=== PATIENT | female | born 1970 | race Caucasian/White ===

== ENCOUNTER → 2018-05-09 | Outpatient (CLI) | payer OTHER ==
[2018-05-09 17:00] LABS: ANION GAP 10 MEQ/L (8-16); CARBON DIOXIDE LEVEL 27 MEQ/L (21-32); CHLORIDE LEVEL 103 MEQ/L (98-107); POTASSIUM SERUM 4.2 MEQ/L (3.5-5.1); SODIUM LEVEL 140 MEQ/L (136-145)
== END ==
LOC: M WUC 12:25
DX: L70.0 Acne vulgaris (principal)
CPT/HCPCS: 80051

== ENCOUNTER 2019-02-03 07:18 | Day surgery (SDC) | payer OTHER ==
[~2019-02-03] VITALS: Ht 167.6 cm; Wt 84.8 kg
[~2019-02-03 07:18] MED LIST: ACETAMINOPHEN 1000MG 100ML IV BTL (OFIRMEV) (J0131 PER 10MG) As Ordered ONE; AUGM875T28 PO; BUPIVACAINE/EPIN 0.25% 30 ML VIAL As Ordered ONE; GOOD200C PO; KETOROLAC 60 MG/2 ML VIAL (J1885) As Ordered ONE; LIDOCAINE 2% INJ 100 MG/5 ML SDV (FOR ANES.) As Ordered ONE; LR 1,000 ML IV ONE; MIDAZOLAM INJ 2 MG/2 ML VIAL (J2250) As Ordered ONE; ONDA4TAB6 PO; ONDANSETRON 4MG/2ML VIAL (J2405) As Ordered ONE; PROPOFOL 200 MG/20 ML VIAL As Ordered ONE; ROCURONIUM BROMIDE 50 MG/5 ML VIAL As Ordered ONE; SPIR100T3 PO; dexameTHASONE 4 MG/ML 1ML VIAL (J1100) As Ordered ONE; fentaNYL 100 MCG/2 ML INJECTION (J3010) As Ordered ONE
[2019-02-03 07:49] LABS: HEMATOCRIT 37.3 % (36.0-47.0); HEMOGLOBIN 11.5 g/dl (12.0-15.5); MEAN CORPUSCULAR HEMOGLOBIN 25.6 pg (27.0-33.0); MEAN CORPUSCULAR HGB CONC 30.8 g/dl (32.0-36.5); MEAN CORPUSCULAR VOLUME 82.9 fl (80.0-96.0); PLATELET COUNT, AUTOMATED 373 10^3/uL (150-450); WHITE BLOOD COUNT 7.8 10^3/uL (4.0-10.0)
[2019-02-03 07:56] LABS: URINE PREG TEST NEGATIVE (NEGATIVE)
[2019-02-03 08:20] LABS: BLOOD UREA NITROGEN 15 MG/DL (7-18); CALCIUM LEVEL 8.6 MG/DL (8.5-10.1); CARBON DIOXIDE LEVEL 29 MEQ/L (21-32); CHLORIDE LEVEL 108 MEQ/L (98-107); CREATININE FOR GFR 0.83 MG/DL (0.55-1.30); GLOMERULAR FILTRATION RATE > 60.0 (>58); GLUCOSE, FASTING 93 MG/DL (70-100); POTASSIUM SERUM 4.1 MEQ/L (3.5-5.1); SODIUM LEVEL 141 MEQ/L (136-145)
[2019-02-03] MEDS ORDERED: fentaNYL 100 MCG/2 ML INJECTION (J3010) As Ordered ONE (08:31)
[2019-02-03] MEDS ORDERED: SUGAMMADEX SODIUM 500 MG/5 ML VIAL (BRIDION) As Ordered ONE (08:44)
[2019-02-03] MEDS ORDERED: oxyCODONE 5MG TAB As Ordered ONE (09:35)
[2019-02-03] MEDS ORDERED: NORCO, ANEXSIA 5/325MG TABLET (HYDROcodone/ACETAMINOPHEN) PO PRN (09:45)
[2019-02-03] MEDS ORDERED: ONDANSETRON 4MG/2ML VIAL (J2405) IV PRN (10:00)
[2019-02-03] MEDS ORDERED: fentaNYL 100 MCG/2 ML INJECTION (J3010) IV PRN (10:00)
[2019-02-03] MEDS ORDERED: oxyCODONE 5MG TAB PO PRN (10:00)
[2019-02-03] MEDS ORDERED: LR 1,000 ML IV SCH (10:00)
[2019-02-03] MEDS ORDERED: PROMETHAZINE INJ 25 MG/ML VIAL (J2550) IV PRN (10:00)
--- NOTE | 2019-02-03 10:33 | RO ---
DATE OF PROCEDURE: 02/03/2019 PREOPERATIVE DIAGNOSIS: Symptomatic cholelithiasis. POSTOPERATIVE DIAGNOSIS: Symptomatic cholelithiasis. PROCEDURE: Laparoscopic cholecystectomy. SURGEON: Dr. Tristan. PROGRAM SUPPORT SPECIALIST: None. ANESTHESIA: General. ESTIMATED BLOOD LOSS: 5 COMPLICATIONS: None. INDICATION FOR PROCEDURE: The patient 48-year-old female who presents the right upper quadrant pain found to have symptomatic cholelithiasis. Recommendation was seen to proceed with laparoscopic possible open cholecystectomy. Risks and benefits of the procedure but not limited to but including bleeding, infection, hernia formation, damage to surrounding structures, need for further surgery ws discussed in detail with the patient and informed consent was obtained and procedure was planned. PROCEDURE: The patient brought back to operating room three after sufficient sedation and was sterilely prepped and draped. Next time-out was done to confirm proper patient proper procedure. Following that a stab incision made in left lower quadrant Veress needle inserted the abdomen was insufflated to 50 mmHg. Next the 5 mm supraumbilical midline incision was made and a 5 mm Optiview port was used to gain access to the abdomen. Once abdomen was entered, Veress needle site was examined. No signs of any injury. Veress needle was then removed 11 mm port placed subxiphoid and two 5 mm ports in the right upper quadrant. Fundus of gallbladder was elevated up towards the right shoulder. Cystic duct and cystic artery were dissected free using combination of blunt sharp dissection, once they are both identified they are both doubly clipped and cut gallbladder was then removed from gallbladder fossa using electrocautery. Once the gallbladder was removed intact it was brought out through the subxiphoid port site in a 10 mm EndoCatch bag. Abdomen was examined to confirm hemostasis and was then desufflated. Skin incisions closed 4-0 Vicryl subcuticular sutures. The abdomen was cleaned and dried. Steri-Strips 4x4 and tape were applied thus ending procedure.
[2019-02-03 11:09] VITALS: BP 120/70
[2019-02-03] MEDS ORDERED: HYDR-3713 (23:37)
[2019-02-03] MEDS ORDERED: IBUP-1022 PO (23:37)
[2019-02-04] MEDS ORDERED: HYDR-3713 PO (05:54)
[2019-02-04] MEDS ORDERED: SPIR100T3 PO (05:54)
[2019-02-04] MEDS ORDERED: IBUP1TAB7 PO (05:54)
== END 2019-02-03 11:11 | disposition home or self-care (01) ==
LOC: M SDC 07:18 → MERGE 09:00 → M SDC 11:11
PROVIDERS: ATTEND Surgery
DX: K80.10 Calculus of gallbladder with chronic cholecystitis without obstruction (principal); L70.8 Other acne; T88.59XD Other complications of anesthesia, subsequent encounter; Z98.84 Bariatric surgery status; Z72.0 Tobacco use

== ENCOUNTER 2019-02-03 23:27 | Emergency (ER) | payer OTHER ==
[~2019-02-03] VITALS: Ht 167.6 cm; Wt 84.1 kg
[~2019-02-03 23:27] MED LIST changes: -ACETAMINOPHEN 1000MG 100ML IV BTL (OFIRMEV) (J0131 PER 10MG) As Ordered ONE; -BUPIVACAINE/EPIN 0.25% 30 ML VIAL As Ordered ONE; -KETOROLAC 60 MG/2 ML VIAL (J1885) As Ordered ONE; -LIDOCAINE 2% INJ 100 MG/5 ML SDV (FOR ANES.) As Ordered ONE; -LR 1,000 ML IV ONE; -MIDAZOLAM INJ 2 MG/2 ML VIAL (J2250) As Ordered ONE; -ONDANSETRON 4MG/2ML VIAL (J2405) As Ordered ONE; -PROPOFOL 200 MG/20 ML VIAL As Ordered ONE; -ROCURONIUM BROMIDE 50 MG/5 ML VIAL As Ordered ONE; -dexameTHASONE 4 MG/ML 1ML VIAL (J1100) As Ordered ONE; -fentaNYL 100 MCG/2 ML INJECTION (J3010) As Ordered ONE
[2019-02-03] MEDS ORDERED: IBUP-1022 PO (23:37)
[2019-02-03] MEDS ORDERED: HYDR-3713 (23:37)
[2019-02-04] MEDS ORDERED: MORPHINE 10 MG/ML 1ML VIAL (J2270) IV ONE
[2019-02-04] MEDS ORDERED: METOCLOPRAMIDE INJ 10MG/2ML VIAL (J2765) IV ONE
[2019-02-04] MEDS ORDERED: ISOVUE-370 76% 100ML VIAL (Q9967) As Ordered ONE (00:03)
[2019-02-04 00:09] LABS: INR 0.95; PROTHROMBIN TIME 12.8 SECONDS (12.1-14.4)
[2019-02-04 00:10] LABS: BASO % 0.2 % (0.0-1.0); EOS % 0.1 % (0.0-3.0); HEMATOCRIT 35.8 % (36.0-47.0); HEMOGLOBIN 11.3 g/dl (12.0-15.5); LYMPH # 3.3 10^3/uL (1.5-4.5); LYMPH % 18.7 % (24.0-44.0); MEAN CORPUSCULAR HEMOGLOBIN 25.5 pg (27.0-33.0); MEAN CORPUSCULAR HGB CONC 31.6 g/dl (32.0-36.5); MEAN CORPUSCULAR VOLUME 80.8 fl (80.0-96.0); MONO # 1.3 10^3/uL (0.0-0.8); MONO % 7.5 % (0.0-5.0); NEUTROPHILS # 12.8 10^3/uL (1.8-7.7); NEUTROPHILS % 72.8 % (36.0-66.0); PARTIAL THROMBOPLASTIN TIME 23.1 SECONDS (25.4-37.6); PLATELET COUNT, AUTOMATED 456 10^3/uL (150-450); RED BLOOD COUNT 4.43 10^6/uL (4.00-5.40); WHITE BLOOD COUNT 17.6 10^3/uL (4.0-10.0)
[2019-02-04 00:19] LABS: ALBUMIN 3.9 GM/DL (3.2-5.2); ALT/SGPT 77 U/L (12-78); BILIRUBIN,DIRECT 0.1 MG/DL (0.0-0.2); BILIRUBIN,TOTAL 0.6 MG/DL (0.2-1.0); BLOOD UREA NITROGEN 17 MG/DL (7-18); CALCIUM LEVEL 9.2 MG/DL (8.5-10.1); CARBON DIOXIDE LEVEL 22 MEQ/L (21-32); CHLORIDE LEVEL 102 MEQ/L (98-107); CREATININE FOR GFR 0.97 MG/DL (0.55-1.30); GLOMERULAR FILTRATION RATE > 60.0 (>58); GLUCOSE, FASTING 158 MG/DL (70-100); LIPASE 95 U/L (73-393); POTASSIUM SERUM 4.4 MEQ/L (3.5-5.1); SODIUM LEVEL 136 MEQ/L (136-145); TOTAL PROTEIN 7.4 GM/DL (6.4-8.2)
[2019-02-04] MEDS ORDERED: KETOROLAC 30 MG/ML VIAL (J1885) IV ONE (00:30)
[2019-02-04] MEDS ORDERED: HYDROMORPHONE HCL 0.5 MG/ 0.5 ML SYRINGE (J1170 PER 1) IV ONE ×2 (01:45→02:45)
--- NOTE | 2019-02-04 01:45 | REPVR ---
EXAM: CT Abdomen and Pelvis With Contrast EXAM DATE/TIME: 02/03/2019 11:58 PM CLINICAL HISTORY: 49 years old, female; Abdominal pain; Generalized; Prior surgery; Surgery date: Post-operative (0-2 days); Surgery type: Lap sujit 02-03-19; Additional info: Post op pain TECHNIQUE: Imaging protocol: Axial computed tomography images of the abdomen and pelvis with intravenous contrast. Coronal and sagittal reformatted images were created and reviewed. Radiation optimization: All CT scans at this facility use at least one of these dose optimization techniques: automated exposure control; mA and/or kV adjustment per patient size (includes targeted exams where dose is matched to clinical indication); or iterative reconstruction. Contrast material: ISO; Contrast volume: 100 ml; Contrast route: AC; COMPARISON: Abdomen, limited US 12/25/2018 10:17 PM FINDINGS: LUNG BASES: No infiltrate or effusion. VASCULAR: Major vasculature is within normal limits. PERITONEAL : Trace amount of free intraperitoneal air noted anterior to the liver. Tiny bubbles of gas are also seen within the anterior abdominal wall. These findings are consistent with recent postoperative change as indicated in the clinical history. Trace amount of fluid is noted within the gallbladder fossa. Small amount of fluid is noted along the right paracolic gutter and within the pelvis. These could be recent postoperative changes. If developing infection or small bile leak is suspected, consider additional evaluation. GI: There is a 3 cm gas containing hiatal hernia. Gastric postoperative changes are noted, consistent with bypass. The bypassed segment of stomach is slightly distended with some fluid. No perigastric inflammatory stranding is seen. The distal esophagus and stomach are not sufficiently distended for complete diagnostic evaluation by this exam. Postoperative changes of small bowel loops noted in the left midabdomen. No focal mesenteric inflammatory stranding. Small nonspecific mesenteric lymph nodes are seen. Scattered fecal material and gas within portions of the colon and rectum. No pericolonic inflammatory stranding. No evidence of acute diverticulitis. The ascending colon appears to be redundant and folded upon itself. The cecum has a mobile position extending into the upper anterior central abdomen, slightly crossing midline. The cecum is focally distended with fecal material and gas up to 8.2 cm in diameter. No cecal wall thickening or pneumatosis seen. The terminal ileum just proximal to the cecum is slightly distended with fecal material up to 3.3 cm in diameter. The significance of these findings is uncertain. No rotation of mesentery is seen to suggest a volvulus. Internal hernia or adhesion may be a possibility. Differential could include ileus. If a focal obstruction is suspected, Consideration could be given to small bowel follow-through, with delayed imaging into the right colon or barium enema with reflux into the distal ileum. The appendix is not identified. No secondary inflammatory changes associated with the cecum. HEPATOBILIARY, PANCREAS, SPLEEN: Sagittal hepatic length is 18.8 cm. Attenuation of the liver suggestive of fatty infiltration. The gallbladder has been removed. Trace amount of fluid noted within the gallbladder fossa as discussed above. There is mild biliary dilation with the common bile duct up to 11 mm in diameter. This could be post cholecystectomy related. No calcific choledocholithiasis is seen. No pancreatic inflammation. Spleen not enlarged. ADRENALS, KIDNEYS, BLADDER, RETROPERITONEAL: Adrenals within normal limits. No hydronephrosis. Symmetric renal enhancement. Nonobstructive 4 mm left renal calculus. No perivesical stranding. No bladder wall thickening. PELVIC: No dominant cystic pelvic mass seen. Anteverted uterus. Gas within the vagina may be iatrogenic. MUSCULOSKELETAL: Small non-inflamed fat containing umbilical hernia. Nonspecific skin thickening at the umbilicus. Mild degenerative changes of the spine and within the pelvis. IMPRESSION: Findings consistent with recent postoperative change, including tiny bubbles of free intraperitoneal air, and gas within the anterior abdominal wall. Small amount of scattered free fluid could be related to recent postop change, differential as discussed above. Focal distention of the cecum with fecal material and gas up to 8.2 cm in diameter, differential and recommendations as discussed above. Other gastrointestinal findings discussed above. Other incidental and non-emergent findings discussed above. Electronically signed by: Adonis Tom On 02/04/2019 01:45:16 AM
[2019-02-04] MEDS ORDERED: NS 1,000 ML IV ONE ×2 (02:45)
[2019-02-04] MEDS ORDERED: NACL IV ONE (05:45)
[2019-02-04] MEDS ORDERED: DILUENT IV ONE (05:45)
[2019-02-04] MEDS ORDERED: KETAMINE IV ONE (05:45)
[2019-02-04] MEDS ORDERED: IBUP1TAB7 PO (05:54)
[2019-02-04] MEDS ORDERED: SPIR100T3 PO (05:54)
[2019-02-04] MEDS ORDERED: HYDR-3713 PO (05:54)
[2019-02-04 07:18] VITALS: BP 117/53
--- NOTE | 2019-02-04 07:24 | ECGEPIP ---
Stationary ECG Study [facility] - ED Test Date: 2019-02-03 Pat Name: MIN DACOSTA Department: Room: - Gender: F Pear Picker: : [id number] Requested By: MARGA HAIR Order Number: [id number] Reading MD: Jeanna Paz Measurements Intervals [place] Rate: 67 P: 63 AR: 149 QRS: 63 QRSD: 89 T: 64 QT: 394 QTc: 417 Interpretive Statements SINUS RHYTHM NO PRIOR FOR COMPARISON Electronically Signed On 02-04-2019 7:24:13 EDT by Jeanna Paz
--- NOTE | 2019-02-04 21:03 | ED PDOC ---
Post-Departure Follow-Up ct abd/p faxed to [facility] and [facility] for fu Saeid Marina MD February 04, 2019 21:03
== END 2019-02-04 07:59 | disposition home or self-care (01) ==
LOC: M ED 23:27
DX: R52 Pain, unspecified (principal); K66.8 Other specified disorders of peritoneum; Z90.49 Acquired absence of other specified parts of digestive tract; Z98.890 Other specified postprocedural states; Z98.84 Bariatric surgery status
CPT/HCPCS: 74177; 80048; 80076; 83690; 85025; 85610; 85730; 93005; 96361; 96365; 96375; 96376; 99285; J1170; J1885; J2270; J2765; Q9967

== ENCOUNTER → 2020-07-09 | Outpatient (CLI) | payer OTHER ==
[~2020-07-09] MED LIST changes: +HYDR-3713; +HYDR-3713 PO; +IBUP-1022 PO; +IBUP1TAB7 PO
[2020-07-09 17:07] LABS: POTASSIUM SERUM 4.2 MEQ/L (3.5-5.1)
== END ==
LOC: M WUC 10:20
PROVIDERS: ATTEND Nurse Practitioner Family
DX: L70.0 Acne vulgaris (principal)

== ENCOUNTER 2020-11-28 04:54 | Emergency (ER) | payer OTHER ==
[~2020-11-28] VITALS: Ht 167.6 cm; Wt 81.9 kg
[2020-11-28] MEDS ORDERED: AZO1CAP PO (05:02)
[2020-11-28 05:47] LABS: BASO % 0.2 % (0.0-1.0); HEMATOCRIT 31.2 % (36.0-47.0); HEMOGLOBIN 9.8 g/dl (12.0-15.5); LYMPH # 0.3 10^3/uL (1.5-5.0); LYMPH % 2.8 % (24.0-44.0); MEAN CORPUSCULAR HEMOGLOBIN 24.6 pg (27.0-33.0); MEAN CORPUSCULAR HGB CONC 31.4 g/dl (32.0-36.5); MEAN CORPUSCULAR VOLUME 78.2 fl (80.0-96.0); MONO # 0.3 10^3/uL (0.0-0.8); NEUTROPHILS # 10.2 10^3/uL (1.5-8.5); NEUTROPHILS % 93.3 % (36.0-66.0); PLATELET COUNT, AUTOMATED 310 10^3/uL (150-450); RED BLOOD COUNT 3.99 10^6/uL (4.00-5.40)
[2020-11-28] MEDS ORDERED: KETOROLAC 30 MG/ML 1ML VIAL IV ONE (06:10)
[2020-11-28 06:52] LABS: ALBUMIN 3.9 GM/DL (3.2-5.2); ALT/SGPT 18 U/L (12-78); BILIRUBIN,DIRECT 0.2 MG/DL (0.0-0.2); BILIRUBIN,TOTAL 0.4 MG/DL (0.2-1.0); BLOOD UREA NITROGEN 8 MG/DL (7-18); CALCIUM LEVEL 8.3 MG/DL (8.5-10.1); CARBON DIOXIDE LEVEL 24 MEQ/L (21-32); CHLORIDE LEVEL 105 MEQ/L (98-107); CREATININE FOR GFR 0.94 MG/DL (0.55-1.30); GLOMERULAR FILTRATION RATE > 60.0 (>58); GLUCOSE, FASTING 113 MG/DL (70-100); LIPASE 71 U/L (73-393); POTASSIUM SERUM 3.4 MEQ/L (3.5-5.1); SODIUM LEVEL 138 MEQ/L (136-145); TOTAL PROTEIN 6.9 GM/DL (6.4-8.2)
[2020-11-28] MEDS ORDERED: NS 1,000 ML IV ONE ×2 (07:00→07:50)
--- NOTE | 2020-11-28 07:57 | REPVR ---
PROCEDURE INFORMATION: Exam: CT Abdomen And Pelvis Without Contrast Exam date and time: 11/28/2020 7:20 AM Age: 50 years old Clinical indication: Abdominal pain; Flank; Other: Simon; Additional info: Simon flank pain concern for stones l>r TECHNIQUE: Imaging protocol: Computed tomography of the abdomen and pelvis without contrast. Radiation optimization: All CT scans at this facility use at least one of these dose optimization techniques: automated exposure control; mA and/or kV adjustment per patient size (includes targeted exams where dose is matched to clinical indication); or iterative reconstruction. COMPARISON: CT ABD/PEL W/IV CONTRAST ONLY 02/04/2019 12:22 AM FINDINGS: Lung bases are clear. No pleural or pericardial effusion. Within the limits of an unenhanced examination, the liver, spleen, pancreas and adrenals are grossly normal. Gallbladder is surgically absent. Kidneys are grossly normal in size, contour and axis. No focal renal abnormalities. There is mild, asymmetric left perinephric stranding. There is mild, asymmetric hydronephrosis of the left intrarenal collecting system and left ureter. Left hydroureter extends to the pelvis where there is at least a partially obstructing urolith in the distal left ureter just above the ureterovesical junction measuring up to 4 mm in diameter (image number 134, series 201). There is no evidence of right ureterolithiasis or obstructive uropathy. Abdominal aorta is normal in caliber with no evidence of aneurysmal dilatation. Surgical suture at the gastroesophageal junction. Enteric anastomosis in the left abdomen. Findings are likely consistent with prior bariatric surgery. Small and large bowel loops are grossly normal. Mild left-sided colonic diverticular changes. No evidence of enteric obstruction, appendicitis or diverticulitis. In pelvic organs are grossly normal. No significant free fluid in the abdomen or pelvis. Visualized osseous structures are grossly normal for age. IMPRESSION: Mild asymmetric left perinephric stranding. Mild asymmetric hydronephrosis of the left intra and extrarenal collecting system. Findings are due to at least a partially obstructing urolith in the distal left ureter measuring up to 4 mm. This is less than 1 cm above the ureterovesical junction. No evidence of right obstructive uropathy. No other acute intra-abdominal or pelvic process. No evidence of enteric obstruction. Electronically signed by: Titus Conrad On 11/28/2020 07:57:48 AM
[2020-11-28] MEDS ORDERED: FLOM0.4C39 PO (08:09)
[2020-11-28] MEDS ORDERED: CEPH500C PO (08:09)
[2020-11-28 08:18] VITALS: BP 106/52
== END 2020-11-28 08:35 | disposition home or self-care (01) ==
LOC: M ED 04:54
DX: N30.90 Cystitis, unspecified without hematuria (principal); N20.0 Calculus of kidney; Z98.84 Bariatric surgery status; Z79.899 Other long term (current) drug therapy; F17.200 Nicotine dependence, unspecified, uncomplicated
CPT/HCPCS: 74176; 80047; 80048; 80076; 81001; 83690; 84702; 85025; 87086; 96361; 96374; 99284; J1885

== ENCOUNTER 2020-11-30 07:50 | Inpatient (IN) | payer OTHER ==
[~2020-11-30] VITALS: Ht 167.6 cm; Wt 83.1 kg
[~2020-11-30 07:50] MED LIST changes: +AZO1CAP PO; +CEPH500C PO; +FLOM0.4C39 PO
[2020-11-30] MEDS ORDERED: NS 1,000 ML IV ONE (08:15)
[2020-11-30] MEDS ORDERED: ONDANSETRON 4MG/2ML VIAL IV ONE (08:15)
[2020-11-30] MEDS ORDERED: ACETAMINOPHEN 500 MG TAB PO ONE (08:15)
[2020-11-30] MEDS ORDERED: NS IV ONE (08:30)
[2020-11-30] MEDS ORDERED: LevoFLOXacin IV 750 MG in IV 1 EA IV ONE (08:30)
[2020-11-30 08:54] LABS: HCG, SERUM QUALITATIVE NEGATIVE (NEGATIVE)
[2020-11-30] MEDS ORDERED: KETOROLAC 30 MG/ML 1ML VIAL IV ONE (08:55)
[2020-11-30 08:57] LABS: BASO % 0.3 % (0.0-1.0); EOS % 0.3 % (0.0-3.0); HEMATOCRIT 31.9 % (36.0-47.0); HEMOGLOBIN 9.9 g/dl (12.0-15.5); LYMPH # 0.5 10^3/uL (1.5-5.0); LYMPH % 4.4 % (24.0-44.0); MEAN CORPUSCULAR HEMOGLOBIN 24.6 pg (27.0-33.0); MEAN CORPUSCULAR VOLUME 79.2 fl (80.0-96.0); MONO # 0.5 10^3/uL (0.0-0.8); MONO % 4.5 % (2.0-8.0); NEUTROPHILS # 10.7 10^3/uL (1.5-8.5); NEUTROPHILS % 89.6 % (36.0-66.0); PLATELET COUNT, AUTOMATED 310 10^3/uL (150-450); RED BLOOD COUNT 4.03 10^6/uL (4.00-5.40)
[2020-11-30 09:07] LABS: ALBUMIN 3.5 GM/DL (3.2-5.2); BILIRUBIN,DIRECT 0.2 MG/DL (0.0-0.2); BILIRUBIN,TOTAL 0.6 MG/DL (0.2-1.0); TOTAL PROTEIN 7.8 GM/DL (6.4-8.2)
--- NOTE | 2020-11-30 09:26 | REP ---
INDICATION: L flank pain, h/o kidney stones, r/o stone vs pyelo COMPARISON: None TECHNIQUE: Axial noncontrast images from the lung bases to the pubic symphysis with coronal and sagittal reformations. This CT examination was performed using the following dose reduction techniques: Automated exposure control, adjustment of mA and/or kv according to the patient's size, and use of iterative reconstruction technique. FINDINGS: Moderate to significant acute left-sided obstructive uropathy including edematous enlargement to the kidney, hydroureteronephrosis, and diffuse inflammatory stranding through the left perinephric space extending to the pelvis. Findings are secondary to a 4.5 mm obstructing calculus approaching the left ureterovesical junction relatively unchanged in appearance and position as compared to prior examination. Right kidney/ureter and bladder are normal. Liver, spleen, pancreas, and bilateral adrenal glands are normal. Prior cholecystectomy noted. The enteric system is without obstruction or acute inflammatory process. Pelvis demonstrates normal age-appropriate uterus/adnexa and relatively normal bladder as described above. No significant ascites. No free air. Abdominal aorta without aneurysm. Musculoskeletal structures are intact. IMPRESSION: Moderate to significant acute left-sided obstructive uropathy with a 4.5 mm obstructing calculus in the distal left ureter approaching the ureterovesical junction and essentially unchanged compared to 11/28/2020. <Electronically signed by Drew Clark > 11/30/20 [id number]
[2020-11-30] MEDS ORDERED: TAMS1CAP17 PO (09:44)
[2020-11-30] MEDS ORDERED: CEPH500C PO (09:44)
[2020-11-30] MEDS ORDERED: ACET-907 PO (09:44)
[2020-11-30 10:44] LABS: RSV AMPLIFICATION NEGATIVE (NEGATIVE)
[2020-11-30] MEDS ORDERED: POTASSIUM CHLORIDE 10 MEQ SR TABLET PO ONE (10:55)
[2020-11-30 11:21] LABS: MAGNESIUM LEVEL 1.9 MG/DL (1.8-2.4)
[2020-11-30] MEDS ORDERED: ACETAMINOPHEN TAB 650MG DOSE (2X325MG) PO PRN (12:00)
[2020-11-30 12:05] VITALS: BP 127/68
[2020-11-30] MEDS: NS 1,000 ML IV SCH (13:05)
[2020-11-30 14:00] VITALS: BP 118/67
--- NOTE | 2020-11-30 14:43 | HPEPDOC ---
General Date of Admission Nov 30, 2020 at 10:51 Date of Service: Nov 30, 2020 Chief Complaint The patient is a 50-year-old female admitted with a reason for visit of Left Ureteral Calculus and Sepsis Source: Patient History of Present Illness Mrs. Campuzano is a 50 year old female with history of nephrolithiasis who presents with dysuria and flank pain for the past 4 days. Dysuria initially started on 11/27/2020 at 9PM. About an hour and a half later, it turned into bilateral flank pain. It was a sharp pain, and it was so severe she was afraid to move. She was also nauseated and vomiting once on Sunday. She was also having fevers. She came into the ED and was given ketorolac which helped with the pain. UA at that time was positive for nitrates. She was sent home with Cephalexin. Afterwards, she continued to have recurring flank pain on the left side and a temperature of 102.7. She returned back tot he ED on 11/30/2020 since she was not getting better. When she came into the ED, she had a fever of 102.9, HR of 110, and leukocytosis of 12. CT of the abd/pelvis demonstrates acute significant left sided obstructive uropathy with 4.5mm obstructing calculus in the distal left ureter. On physical exam, she does have left CVA tenderness. ED provider and I reached out to Dr. Farley, who said he could take her to the OR later in the day. Patient will be admitted for sepsis secondary to UTI complicated by obstructive renal stone. Home Medications Scheduled Cephalexin (Cephalexin) 500 Mg Capsule, 500 MG PO TID, (Reported) STARTED 11/28/20 FOR 10 DAYS Spironolactone (Spironolactone) 100 Mg Tablet, 100 MG PO DAILY, (Reported) Tamsulosin Hcl (Tamsulosin HCl) 0.4 Mg Capsule, 0.4 MG PO DAILY, (Reported) Scheduled PRN Acetaminophen (Tylenol) 325 Mg Tablet, 650 MG PO QID PRN for PAIN, (Reported) Cranberry Fruit Extract/Vit C (Azo Cranberry Softgel) 1 Each Capsule, 1 CAP PO BID PRN for UTI SYMPTOMS, (Reported) Allergies Coded Allergies: No Known Allergies (Unverified , 02/03/19) Past Medical History Medical History 1. Nephrolithiasis 2. Acne Surgical History 1. Gastric Bypass 2009 2. Lap cholecystectomy 3. Lasiks Family History Father: Heart disease, bladder cancer Mother: Vertigo Social History * Smoker: former Smoker (Quit 10 years ago), other (Currently using nicotine lozengers) Alcohol: occationally (About 3 to 4 times a week. Last drink on Sunday (about 4 days ago)) Drugs: denies A-FIB/CHADSVASC A-FIB History Current/History of A-Fib/PAF?: No Review of Systems Constitutional: Reports: Fever; Denies: Chills Eyes: Denies: Vision change ENT: Reports: Other Symptoms (Dry mouth); Denies: Sore Throat Skin: Denies: Rash Pulmonary: Denies: Dyspnea, Cough Cardiovascular: Denies: Chest Pain Gastrointestinal: Reports: Nausea, Vomiting (Once on Sunday) Genitourinary: Reports: Dysuria Hematologic: Denies: Bruising Musculoskeletal: Reports: Back Pain Neurological: Denies: Other Symptoms (Denies paresthesias) Psych: Denies: Anxiety, Depression Physical Examination General Exam: Positive: Alert, Cooperative Eye Exam: Positive: EOMI; Negative: Sclera icteric ENT Exam: Positive: Atraumatic Neck Exam: Positive: Supple Chest Exam: Positive: Clear to auscultation; Negative: Rales, Rhonchi, Wheezing Heart Exam: Positive: Tachycardic, Regular Rhythm Abdomen Exam: Positive: Normal bowel sounds, Soft, Tenderness (Left abdomen) Extremity Exam: Negative: Edema Neuro Exam: Positive: Normal Speech, Cranial Nerves 3-12 NL Psych Exam: Positive: Mental status NL, Mood NL Other physical findings Musculoskeletal: Left CVA tenderness, No tenderness on right Vital Signs Vital Signs Date Time Temp Pulse Resp B/P (MAP) Pulse Ox O2 Delivery O2 Flow Rate FiO2 11/30/20 12:05 98.5 92 18 127/68 (87) 97 11/30/20 11:48 Room Air Laboratory Data Labs 24H Laboratory Tests 2 11/30/20 08:11: Immature Granulocyte % (Auto) 0.9, Neutrophils (%) (Auto) 89.6H, Lymphocytes (%) (Auto) 4.4L, Monocytes (%) (Auto) 4.5, Eosinophils (%) (Auto) 0.3, Basophils (%) (Auto) 0.3, Neutrophils # (Auto) 10.7H, Lymphocytes # (Auto) 0.5L, Monocytes # (Auto) 0.5, Eosinophils # (Auto) 0.0, Basophils # (Auto) 0.0, Nucleated Red Blood Cells % (auto) 0.0, Total Bilirubin 0.6, Direct Bilirubin 0.2, Aspartate Amino Transf (AST/SGOT) 12, Alanine Aminotransferase (ALT/SGPT) 15, Alkaline P hosphatase 82, Total Protein 7.8, Albumin 3.5, Albumin/Globulin Ratio 0.8L, Amylase Level 29, Lipase 61L 11/30/20 08:13: Lactic Acid Level 1.4 11/30/20 08:25: Urine Color YELLOW, Urine Appearance CLEAR, Urine pH 6.0, Urine Specific [place] 1.012, Urine Protein 1+H, Urine Glucose (UA) NEGATIVE, Urine Ketones 1+H, Urine Blood 2+H, Urine Nitrite NEGATIVE, Urine Bilirubin NEGATIVE, Urine Urobilinogen 0.2, Urine Leukocyte Esterase NEGATIVE, Urine WBC (Auto) 6H, Urine RBC (Auto) 33H, Urine Hyaline Casts (Auto) 0, Urine Bacteria (Auto) NEGATIVE, Urine Squamous Epithelial Cells 0, Urine Sperm (Auto) , POC Glucose (Misc Panel) 110H, POC Sodium (Misc Panel) 134L, POC Potassium (Misc Panel) 3.3L, POC Chloride (Misc Panel) 101, POC Total CO2 (Misc Panel) 23.0, POC Blood Urea Nitrogen (Misc Panel 7L, POC Ionized Calcium (Misc Panel) 4.5, POC Creatinine (Misc Panel) 0.9, POC Hematocrit (Misc Panel) 33.0L, Magnesium Level 1.9, Human Chorionic Gonadotropin, Qual NEGATIVE 11/30/20 09:50: Coronavirus (COVID-19)(PCR) NEGATIVE, Influenza Type A (RT-PCR) NEGATIVE, Influenza Type B (RT-PCR) NEGATIVE, Respiratory Syncytial Virus (PCR) NEGATIVE CBC/BMP Laboratory Tests 11/30/20 08:11 Microbiology Microbiology 11/30/20 Blood Culture, Received Pending 11/30/20 Blood Culture, Received Pending Assessment/Plan Mrs. Campuzano is a 50 year old female with history of nephrolithiasis who presents with dysuria and flank pain for the past 4 days. UA on 11/28/2020 did demonstrate nitrates, but UA did not demonstrate growth. Due to her recurrent fever, will still treat as complicated UTI. There is an acute significant obstructive uropathy in left kidney 2/2 left nephrolithiasis. Urology consulted, recommendations appreciated. Patient will be kept NPO for procedure later tonight. Plan / VTE VTE Prophylaxis Ordered?: Yes Plan Plan 1. Sepsis secondary to complicated UTI -Meets 3/4 criteria for sepsis (fever, tachycardia, leukocytosis) -Received 30mL/kg of fluid in the ED -Started on Levofloxacin 2. UTI complicated by left obstructive kidney stone -UA on 11/28/2020 demonstrated nitrates, but no growth -Will empirically treat with levothyroxine -Current UA most likely confounded by current antibiotic use 3. Acute significant left sided obstructive uropathy -There is a 4.5mm obstructing calculus in the distal left ureter approaching the ureterovesical junction -Attempted outpatient management, but continued to have fevers and pain -Urology consulted, recommendations appreciated -NPO for procedure after 6PM tonight. -Can resume normal diet after procedure 4. Acne -She was taking spironolactone for acne -Hold spironolactone until after procedure 5. Microcytic anemia -Baseline hgb around 11, but currently around 10 to 9 -Will order iron studies and Hemoccult stool -If Hemoccult stool positive, can consider outpatient GI consultation for colonoscopy 6. DVT ppx -SCD and TEDs as patient going for procedure this afternoon. Can consider chemical ppx after procedure. PHANI WILLOUGHBY DO Nov 30, 2020 14:43
[2020-11-30] MEDS ORDERED: KETOROLAC 30 MG/ML 1ML VIAL IV PRN (15:00)
--- NOTE | 2020-11-30 16:37 | ECGEPIP ---
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
[2020-11-30] MEDS ORDERED: MIDAZOLAM INJ 2MG/2ML VIAL (J2250 PER 1MG) As Ordered ONE (19:48)
[2020-11-30] MEDS ORDERED: fentaNYL 100 MCG/2 ML INJECTION (J3010) As Ordered ONE (19:48)
[2020-11-30] MEDS ORDERED: LIDOCAINE 2% 100MG/5ML SDV (FOR ANES.) As Ordered ONE (19:48)
[2020-11-30] MEDS ORDERED: propofoL 200 MG/20 ML VIAL As Ordered ONE (19:48)
--- NOTE | 2020-11-30 20:03 | SMCUROLCON ---
Urology Consultation General Date of Consultation 11/30/20 Reason For Consultation This patient is seen for Left Ureteral Calculus Sepsis Uti. History of Present Illness This is a 50 y/o F no significant PMH, who presented to the ER this morning w/ worsening L flank pain and fevers. She came to the ER 2-3 days ago w/ severe L flank pain and was found to have an obstructing 4mm L UVJ stone. She was discha rged home on pain medication and antibiotics. She notes that he pain worsened over the last few days and she started having fevers as well. She also had n/v. She denied dysuria. Repeat CT A/P done today was notable for the 4mm L UVJ stone still in place. She was admitted for treatment of the stone and infection. While on the nursing floor, she passed her stone. She notes that her pain at this time is much better. Her nausea has resolved. She notes that her last fever was when she passed her stone. Past Medical History Medical History None Surgical Hstory Laparoscopic Cholecystectomy Gastric Bypass Medications Current Medications Current Medications Medications (Trade) Dose Ordered Sig/Kalen Route PRN Reason Start Time Stop Time Status Last Admin Dose Admin Acetaminophen (Tylenol Tab) 650 mg Q4H PRN PO PAIN OR FEVER 11/30/20 12:00 11/30/20 15:39 Home Med (Med Rec Complete!) ASDIRECTED XX 11/30/20 09:45 11/30/20 09:46 DC Ketorolac Tromethamine (ToRADol) 15 mg Q6HP PRN IV PAIN 11/30/20 15:00 12/05/20 14:59 Levofloxacin 750 mg/IV Miscellaneous Supplies 150 ml @ 100 mls/hr Q24H IV 12/01/20 09:00 Sodium Chloride 1,000 ml @ 80 mls/hr [id number] IV 11/30/20 10:55 11/30/20 13:05 Allergies Allergies: Coded Allergies: No Known Allergies (Unverified , 02/03/19) Review of Systems Constitutional: Reports: Fever Skin: Denies: Rash, Lesions, Breakdown, Nail Changes Pulmonary: Denies: Dyspnea, Cough Gastrointestinal: Reports: Nausea, Vomiting, Abdominal Pain Genitourinary: Reports: Hematuria; Denies: Dysuria, Frequency, Incontinence, Retention, Other Symptoms Musculoskeletal: Reports: Back Pain (left flank) Psych: Reports: Mood Normal; Denies: Anxiety, Depression Physical Examination General Exam: Alert, Cooperative, No Acute Distress Chest Exam: Normal air movement Heart Exam: Rate Normal, Regular Rhythm Abdomen Exam: Soft, Tenderness (mild LLQ tenderness) Skin Exam: Nl turgor and temperature Neuro Exam: Normal Speech Psych Exam: Mental status NL, Mood NL Vital Signs/I&O Vital Signs Date Time Temp Pulse Resp B/P (MAP) Pulse Ox O2 Delivery O2 Flow Rate FiO2 11/30/20 18:41 98.8 11/30/20 14:00 103 18 118/67 (84) 98 11/30/20 11:48 Room Air Laboratory Data 24H Labs Laboratory Tests 2 11/30/20 08:11: Immature Granulocyte % (Auto) 0.9, Neutrophils (%) (Auto) 89.6H, Lymphocytes (%) (Auto) 4.4L, Monocytes (%) (Auto) 4.5, Eosinophils (%) (Auto) 0.3, Basophils (%) (Auto) 0.3, Neutrophils # (Auto) 10.7H, Lymphocytes # (Auto) 0.5L, Monocytes # (Auto) 0.5, Eosinophils # (Auto) 0.0, Basophils # (Auto) 0.0, Nucleated Red Blood Cells % (auto) 0.0, Total Bilirubin 0.6, Direct Bilirubin 0.2, Aspartate Amino Transf (AST/SGOT) 12, Alanine Aminotransferase (ALT/SGPT) 15, Alkaline Phosphatase 82, Total Protein 7.8, Albumin 3.5, Albumin/Globulin Ratio 0.8L, Amylase Level 29, Lipase 61L 11/30/20 08:13: Lactic Acid Level 1.4 11/30/20 08:25: Urine Color YELLOW, Urine Appearance CLEAR, Urine pH 6.0, Urine Specific [place] 1.012, Urine Protein 1+H, Urine Glucose (UA) NEGATIVE, Urine Ketones 1+H, Urine Blood 2+H, Urine Nitrite NEGATIVE, Urine Bilirubin NEGATIVE, Urine Urobilinogen 0.2, Urine Leukocyte Esterase NEGATIVE, Urine WBC (Auto) 6H, Urine RBC (Auto) 33H, Urine Hyaline Casts (Auto) 0, Urine Bacteria (Auto) NEGATIVE, Urine Squamous Epithelial Cells 0, Urine Sperm (Auto) , POC Glucose (Misc Panel) 110H, POC Sodium (Misc Panel) 134L, POC Potassium (Misc Panel) 3.3L, POC Chloride (Misc Panel) 101, POC Total CO2 (Misc Panel) 23.0, POC Blood Urea Nitrogen (Misc Panel 7L, POC Ionized Calcium (Misc Panel) 4.5, POC Creatinine (Misc Panel) 0.9, POC Hematocrit (Misc Panel) 33.0L, Magnesium Level 1.9, Human Chorionic Gonadotropin, Qual NEGATIVE 11/30/20 09:50: Coronavirus (COVID-19)(PCR) NEGATIVE, Influenza Type A (RT-PCR) NEGATIVE, Influenza Type B (RT-PCR) NEGATIVE, Respiratory Syncytial Virus (PCR) NEGATIVE CBC/BMP Laboratory Tests 11/30/20 08:11 Microbiology Microbiology 11/30/20 Blood Culture, Received Pending 11/30/20 Blood Culture, Received Pending Assessment This is a 50 y/o F admitted for worsening L flank pain due to a 4mm L UVJ stone and a possible UTI. The patient has passed her stone and therefore her surgery was cancelled. Plan - surgery cancelled - ok for regular diet - will send her kidney stone for analysis - assuming patient feels better tomorrow and remains afebrile, ok for discharge home from urologic standpoint AUSTIN MOORE MD Nov 30, 2020 20:03
[2020-11-30 22:00] VITALS: BP 100/66
[2020-12-01 06:00] VITALS: BP 101/62
[2020-12-01 06:19] LABS: HEMATOCRIT 25.7 % (36.0-47.0); MEAN CORPUSCULAR HEMOGLOBIN 24.8 pg (27.0-33.0); MEAN CORPUSCULAR HGB CONC 31.1 g/dl (32.0-36.5); MEAN CORPUSCULAR VOLUME 79.6 fl (80.0-96.0); PLATELET COUNT, AUTOMATED 246 10^3/uL (150-450); RED BLOOD COUNT 3.23 10^6/uL (4.00-5.40); WHITE BLOOD COUNT 6.7 10^3/uL (4.0-10.0)
[2020-12-01 07:14] LABS: BLOOD UREA NITROGEN 7 MG/DL (7-18); CALCIUM LEVEL 7.6 MG/DL (8.5-10.1); CARBON DIOXIDE LEVEL 23 MEQ/L (21-32); CHLORIDE LEVEL 111 MEQ/L (98-107); CREATININE FOR GFR 0.54 MG/DL (0.55-1.30); FERRITIN 54 NG/ML (8-252); GLOMERULAR FILTRATION RATE > 60.0 (>58); GLUCOSE, FASTING 83 MG/DL (70-100); IRON (FE) 12 UG/DL (50-170); PERCENT SATURATION 3.8 % (13.2-45.0); POTASSIUM SERUM 3.6 MEQ/L (3.5-5.1); SODIUM LEVEL 141 MEQ/L (136-145); TOTAL IRON BINDING CAPACITY 314 UG/DL (250-450)
[2020-12-01] MEDS ORDERED: LEVO750T13 PO (08:11)
[2020-12-01] MEDS ORDERED: COLA100C5 PO (08:14)
[2020-12-01] MEDS ORDERED: FERR325T16 PO (08:14)
[2020-12-01] MEDS ORDERED: DOCUSATE SODIUM 100MG CAPSULE PO SCH (09:00)
[2020-12-01] MEDS ORDERED: LevoFLOXacin IV 750 MG in IV 1 EA IV SCH (09:00)
[2020-12-01] MEDS ORDERED: FERROUS GLUCONATE 324 MG TAB PO SCH (09:00)
[2020-12-01] MEDS: NS 1,000 ML IV SCH (09:11)
--- NOTE | 2020-12-01 10:27 | IPNPDOC ---
Subjective Review oF Systems Chief Complaint The patient is a 50-year-old female admitted with a reason for visit of Left Ureteral Calculus Sepsis Uti. Events since Last Encounter No acute events o/n. Patient's pain is pretty much gone. Denies n/v. No fevers o/n. Objective Physical Examination General Exam: Alert, Cooperative, No Acute Distress Heart Exam: Positive: Tachycardic, Regular Rhythm ABDOMEN EXAM: Soft; No: Tenderness Skin Exam: Nl turgor and temperature Neuro Exam: Normal Speech Psych Exam: Mental status NL, Mood NL Other physical findings no CVAT Vital Signs/I&O Vital Signs Date Time Temp Pulse Resp B/P (MAP) Pulse Ox O2 Delivery O2 Flow Rate FiO2 12/01/20 06:00 98.9 80 18 101/62 (75) 97 Room Air I&O- Last 24 Hours up to 6 AM 12/01/20 06:00 Intake Total 3770 ml Output Total 2120 ml Balance 1650 ml Laboratory Data Labs 24H Laboratory Tests 2 11/30/20 21:18: 12/01/20 05:27: Bedside Glucose (Misc Panel) 81 12/01/20 05:52: Nucleated Red Blood Cells % (auto) 0.0, Anion Gap 7L, Glomerular Filtration Rate > 60.0, Calcium Level 7.6L, Iron Level 12L, Total Iron Binding Capacity 314, Transferrin % Saturation 3.8L, Ferritin 54, C-Reactive Protein, Quantitative 12.70H CBC/BMP Laboratory Tests 12/01/20 05:52 FSBS Laboratory Tests Test 12/01/20 05:27 Range/Units Bedside Glucose (Misc Panel) 81 70-105 MG/DL Microbiology Microbiology 11/30/20 Blood Culture - Preliminary, Resulted No growth after 24 hours . All specim... 11/30/20 Blood Culture - Preliminary, Resulted No growth after 24 hours . All specim... Assessment/Plan Date Seen The patient was seen on 12/01/20. Patient Summary This is a 50 y/o F admitted yesterday for worsening L flank pain due to a 4mm L UVJ stone and a possible UTI. She has passed her stone and feels much better. Plan/VTE VTE Prophylaxis Ordered?: Yes VTE Exclusion Mechanical Proph: N/A:VTE Prophy Ordered Plan - kidney stone sent for analysis - ok for discharge from urologic standpoint - will arrange f/u in urology office in 2-3 wks to discuss stone analysis and stone prevention AUSTIN MOORE MD Dec 01, 2020 10:26
--- NOTE | 2020-12-01 23:33 | DS.PDOC ---
Discharge Summary General Date of Admission Nov 30, 2020 at 10:51 Date of Discharge Dec 01, 2020 Discharge Summary PROCEDURES PERFORMED DURING STAY: None ADMITTING DIAGNOSES: 1. Sepsis 2/2 complicated UTI 2. UTI complicated by left obstructive kidney stone 3. Acute significant left sided obstructive uropathy 4. Acne 5. Microcytic anemia DISCHARGE DIAGNOSES: 1. Sepsis 2/2 complicated UTI 2. UTI complicated by left obstructive kidney stone 3. Acute significant left sided obstructive uropathy 4. Acne 5. Microcytic anemia COMPLICATIONS/CHIEF COMPLAINT: Left Ureteral Calculus Sepsis Uti. HISTORY OF PRESENT ILLNESS: Mrs. Campuzano is a 50 year old female with history of nephrolithiasis who presents with dysuria and flank pain for the past 4 days. Dysuria initially started on 11/27/2020 at 9PM. About an hour and a half later, it turned into bilateral flank pain. It was a sharp pain, and it was so severe she was afraid to move. She was also nauseated and vomiting once on Sunday. She was also having fevers. She came into the ED and was given ketorolac which helped with the pain. UA at that time was positive for nitrates. She was sent home with Cephalexin. Afterwards, she continued to have recurring flank pain on the left side and a temperature of 102.7. She returned back tot he ED on 11/30/2020 since she was not getting better. When she came into the ED, she had a fever of 102.9, HR of 110, and leukocytosis of 12. CT of the abd/pelvis demonstrates acute significant left sided obstructive uropathy with 4.5mm obstructing calculus in the distal left ureter. On physical exam, she does have left CVA tenderness. ED provider and I reached out to Dr. Farley, who said he could take her to the OR later in the day. Patient will be admitted for sepsis secondary to UTI complicated by obstructive renal stone. HOSPITAL COURSE: Prior to having the urologic procedure, she passed two stones and immediately had relief. Urology evaluated. No procedure needed at this time. Stones were sent for analysis. The following morning, she was feeling well and has been afebrile since then. Flank pain has greatly resolved. Otherwise, she has microcytic anemia with iron deficiency. She has not yet had a colonoscopy, but is approaching the time for colorectal cancer screening. I recommended that she see GI for iron deficiency microscopic anemia. Otherwise, she felt well and felt ready for home. She was discharged home with PO antibiotics, Colace and iron supplements DISCHARGE MEDICATIONS: Please see below. ALLERGIES: Please see below. PHYSICAL EXAMINATION ON DISCHARGE: VITAL SIGNS: Please see below. GENERAL: Comfortable, in no apparent distress HEENT: Head normocephalic, atraumatic NECK: Supple CARDIOVASCULAR EXAMINATION: Regular rate and rhythm RESPIRATORY EXAMINATION: Lungs clear to auscultation bilaterally ABDOMINAL EXAMINATION: Soft, non-tender, normal bowel sounds EXTREMITIES: No pitting edema bilaterally SKIN: Warm and dry NEUROLOGICAL EXAMINATION: CN 3-12 grossly intact PSYCHIATRIC EXAMINATION: Normal mood and affect LABORATORY DATA: Please see below. IMAGING: CT abd/pelvis Moderate to significant acute left-sided obstructive uropathy with a 4.5 mm obstructing calculus in the distal left ureter approaching the ureterovesical junction and essentially unchanged compared to 11/28/2020. PROGNOSIS: Good ACTIVITY: As tolerated. DIET: As tolerated DISCHARGE PLAN: Home DISPOSITION: Home, Self-Care. DISCHARGE INSTRUCTIONS: 1. Follow up with PCP within 1 week. Discuss with your PCP about your anemia 2. I've requested that you see GI for microcytic iron deficiency anemia. She is also nearing her time for colorectal cancer screening ITEMS TO FOLLOWUP ON ON OUTPATIENT: 1. Kidney stone analysis DISCHARGE CONDITION: Stable. Total time spent on discharge planning, discharge summary, and medication reconciliation: 40 minutes Vital Signs/I&Os Vital Signs Date Time Temp Pulse Resp B/P (MAP) Pulse Ox O2 Delivery O2 Flow Rate FiO2 12/01/20 06:00 98.9 80 18 101/62 (75) 97 Room Air I&O- Last 24 Hours up to 6 AM 12/01/20 06:00 Intake Total 3770 ml Output Total 2120 ml Balance 1650 ml Laboratory Data Labs 24H Laboratory Tests 2 12/01/20 05:27: Bedside Glucose (Misc Panel) 81 12/01/20 05:52: Nucleated Red Blood Cells % (auto) 0.0, Anion Gap 7L, Glomerular Filtration Rate > 60.0, Calcium Level 7.6L, Iron Level 12L, Total Iron Binding Capacity 314, Transferrin % Saturation 3.8L, Ferritin 54, C-Reactive Protein, Quantitative 12.70H CBC/BMP Laboratory Tests 12/01/20 05:52 FSBS Laboratory Tests Test 12/01/20 05:27 Range/Units Bedside Glucose (Misc Panel) 81 70-105 MG/DL Microbiology Microbiology 11/30/20 Blood Culture - Preliminary, Resulted No growth after 24 hours . All specim... 11/30/20 Blood Culture - Preliminary, Resulted No growth after 24 hours . All specim... Discharge Medications Scheduled Ferrous Gluconate (Ferrous Gluconate) 324 Mg Tablet, 1 TAB PO QHS for iron Levofloxacin (Levofloxacin) 750 Mg Tablet, 750 MG PO DAILY Spironolactone (Spironolactone) 100 Mg Tablet, 100 MG PO DAILY, (Reported) Tamsulosin Hcl (Tamsulosin HCl) 0.4 Mg Capsule, 0.4 MG PO DAILY, (Reported) Scheduled PRN Acetaminophen (Tylenol) 325 Mg Tablet, 650 MG PO QID PRN for PAIN, (Reported) Cranberry Fruit Extract/Vit C (Azo Cranberry Softgel) 1 Each Capsule, 1 CAP PO BID PRN for UTI SYMPTOMS, (Reported) Docusate Sodium (Colace) 100 Mg Capsule, 100 MG PO BID PRN for CONSTIPATION Allergies Coded Allergies: No Known Allergies (Unverified , 02/03/19) PHANI WILLOUGHBY DO Dec 01, 2020 23:33
== END 2020-12-01 11:15 | disposition home or self-care (01) | DRG 872 ==
LOC: M ED 07:50 → M ED INP 10:51 → ENRESERV 11:31 → M MSPAV 12:11
PROVIDERS: ADMIT Internal Medicine; ATTEND Internal Medicine
DX: A41.9 Sepsis, unspecified organism (principal); N39.0 Urinary tract infection, site not specified; N20.1 Calculus of ureter; L70.9 Acne, unspecified; D50.9 Iron deficiency anemia, unspecified; Z79.899 Other long term (current) drug therapy; Z87.891 Personal history of nicotine dependence

== ENCOUNTER → 2020-12-11 | Outpatient (CLI) | payer OTHER ==
[~2020-12-11] MED LIST changes: +ACET-907 PO; +COLA100C5 PO; +FERR325T16 PO; +LEVO750T13 PO; +TAMS1CAP17 PO
[2020-12-11 11:57] LABS: BASO # 0.1 10^3/uL (0.0-0.2); BASO % 0.9 % (0.0-1.0); EOS # 0.1 10^3/uL (0.0-0.5); EOS % 1.1 % (0.0-3.0); HEMATOCRIT 34.6 % (36.0-47.0); HEMOGLOBIN 10.8 g/dl (12.0-15.5); LYMPH # 2.5 10^3/uL (1.5-5.0); LYMPH % 30.5 % (24.0-44.0); MEAN CORPUSCULAR HEMOGLOBIN 24.9 pg (27.0-33.0); MEAN CORPUSCULAR HGB CONC 31.2 g/dl (32.0-36.5); MEAN CORPUSCULAR VOLUME 79.9 fl (80.0-96.0); MONO # 0.7 10^3/uL (0.0-0.8); MONO % 8.1 % (2.0-8.0); NEUTROPHILS # 4.9 10^3/uL (1.5-8.5); NEUTROPHILS % 58.9 % (36.0-66.0); PLATELET COUNT, AUTOMATED 583 10^3/uL (150-450); RED BLOOD COUNT 4.33 10^6/uL (4.00-5.40); WHITE BLOOD COUNT 8.2 10^3/uL (4.0-10.0)
[2020-12-11 12:22] LABS: ALBUMIN 3.9 GM/DL (3.2-5.2); ALT/SGPT 21 U/L (12-78); BILIRUBIN,TOTAL 0.4 MG/DL (0.2-1.0); BLOOD UREA NITROGEN 14 MG/DL (7-18); CALCIUM LEVEL 8.9 MG/DL (8.5-10.1); CARBON DIOXIDE LEVEL 31 MEQ/L (21-32); CHLORIDE LEVEL 104 MEQ/L (98-107); CHOLESTEROL LEVEL 215 MG/DL (<200); CHOLESTEROL RISK RATIO 2.216 (<5); CREATININE FOR GFR 0.56 MG/DL (0.55-1.30); GLOMERULAR FILTRATION RATE > 60.0 (>58); GLUCOSE, FASTING 77 MG/DL (70-100); HDL CHOLESTEROL 97 MG/DL (>40); LDL CHOLESTEROL 105 MG/DL (<100); NON-HDL-C 118 MG/DL; POTASSIUM SERUM 4.4 MEQ/L (3.5-5.1); SODIUM LEVEL 139 MEQ/L (136-145); TOTAL PROTEIN 7.4 GM/DL (6.4-8.2); TRIGLYCERIDES LEVEL 65 MG/DL (<150)
== END ==
LOC: M LAB 10:01
PROVIDERS: ATTEND Student in an Organized Health Care Education/Training Program
DX: D50.9 Iron deficiency anemia, unspecified (principal)

== ENCOUNTER → 2021-04-11 | Outpatient (CLI) | payer OTHER ==
[~2021-04-11] MED LIST changes: +CALC1TAB30 PO; +FERR324T21 PO; -FERR325T16 PO; +FERR32TA; +VITMTA PO
== END ==
LOC: M LABSMTC 11:38
PROVIDERS: ATTEND Anesthesiology
DX: Z01.812 Encounter for preprocedural laboratory examination (principal); Z20.822 Contact with and (suspected) exposure to COVID-19

== ENCOUNTER 2021-04-15 09:39 | Day surgery (SDC) | payer OTHER ==
[~2021-04-15] VITALS: Ht 170.2 cm; Wt 78.5 kg
[~2021-04-15 09:39] MED LIST changes: +NS 1,000 ML IV ONE
[2021-04-15] MEDS ORDERED: LIDOCAINE 2% 100MG/5ML SDV (FOR ANES.) As Ordered ONE (11:55)
[2021-04-15] MEDS ORDERED: fentaNYL 100 MCG/2 ML INJECTION (J3010) As Ordered ONE (11:55)
[2021-04-15] MEDS ORDERED: propofoL 200 MG/20 ML VIAL As Ordered ONE ×2 (11:55→12:32)
--- NOTE | 2021-04-15 12:15 | ROOR ---
Patient Name: Jana Campuzano Procedure Date: 04/15/2021 12:02 PM Date of : 1970 Age: 51 Room: [facility] Gender: Female Note Status: Finalized Procedure: Upper GI endoscopy Indications: Iron deficiency anemia Providers: Howie Logan MD Referring MD: Meeta Westfall Md Requesting Provider: Medicines: Monitored Anesthesia Care Complications: No immediate complications. Procedure: Pre-Anesthesia Assessment: - The heart rate, respiratory rate, oxygen saturations, blood pressure, adequacy of pulmonary ventilation, and response to care were monitored throughout the procedure. The Endoscope was introduced through the mouth, and advanced to the jejunum. The upper GI endoscopy was accomplished without difficulty. The patient tolerated the procedure well. 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 The gastrojejunal anastomosis was characterized by healthy appearing mucosa. This was traversed. Normal mucosa was found at the anastomosis. The examined esophagus was normal. The examined jejunum was normal. Biopsies for histology were taken with a cold forceps for evaluation of celiac disease. 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 - Otherwise normal stomach. - Normal esophagus. - Normal examined jejunum. Biopsied. Recommendation: - Telephone endoscopist for pathology results in 2 weeks. - Recommend an iron supplement. Procedure Code(s): --- Professional --- 59930, Esophagogastroduodenoscopy, flexible, transoral; with biopsy, single or multiple Diagnosis Code(s): --- Professional --- D50.9, Iron deficiency anemia, unspecified Z98.0, Intestinal bypass and anastomosis status CPT copyright 2019 [employer]. All rights reserved. The codes documented in this report are preliminary and upon predatory game hunter review may be revised to meet current compliance requirements. Howie Logan MD Howie Logan MD 04/15/2021 12:15:37 PM Electronically signed by Howie Logan MD Number of Addenda: 0 Note Initiated On: 04/15/2021 12:02 PM Estimated Blood Loss: Estimated blood loss: none.
--- NOTE | 2021-04-15 12:42 | ROOR ---
Patient Name: Jana Campuzano Procedure Date: 04/15/2021 12:03 PM Date of : 1970 Age: 51 Room: [facility] Gender: Female Note Status: Finalized Procedure: Colonoscopy Indications: Iron deficiency anemia Providers: Howie Logan MD Referring MD: Meeta Westfall Md Requesting Provider: Medicines: Monitored Anesthesia Care Complications: No immediate complications. Procedure: Pre-Anesthesia Assessment: - The heart rate, respiratory rate, oxygen saturations, blood pressure, adequacy of pulmonary ventilation, and response to care were monitored throughout the procedure. The Colonoscope was introduced through the anus and advanced to 10 cm into the ileum. The colonoscopy was performed without difficulty. The patient tolerated the procedure well. The quality of the bowel preparation was suboptimal/fair due to adherent mucus. Required extensive lavage. Findings: The perianal and digital rectal examinations were normal. The colon (entire examined portion) appeared normal. Small Internal Hemorrhoids. The terminal ileum appeared normal. Impression: - The colon prep was fair/suboptimal. - The examined portion of the ileum was normal. - The entire examined colon is normal. - Small Internal Hemorrhoids. - No specimens collected. Recommendation: - Repeat colonoscopy in 3 years because the bowel preparation was suboptimal. Procedure Code(s): --- Professional --- 18776, Colonoscopy, flexible; diagnostic, including collection of specimen(s) by brushing or washing, when performed (separate procedure) Diagnosis Code(s): --- Professional --- D50.9, Iron deficiency anemia, unspecified CPT copyright 2019 [employer]. All rights reserved. The codes documented in this report are preliminary and upon braille coder review may be revised to meet current compliance requirements. Howie Logan MD Howie Logan MD 04/15/2021 12:42:07 PM Electronically signed by Howie Logan MD Number of Addenda: 0 Note Initiated On: 04/15/2021 12:03 PM Estimated Blood Loss: Estimated blood loss: none.
[2021-04-15 13:04] VITALS: BP 117/60
== END 2021-04-15 13:05 | disposition home or self-care (01) ==
LOC: M OPP 09:39
PROVIDERS: ATTEND Internal Medicine Gastroenterology
DX: K64.8 Other hemorrhoids (principal); D50.9 Iron deficiency anemia, unspecified; Z98.0 Intestinal bypass and anastomosis status; Z79.899 Other long term (current) drug therapy; F17.210 Nicotine dependence, cigarettes, uncomplicated
CPT/HCPCS: 43239; 45378; 88305; J3010

== ENCOUNTER → 2021-05-10 | Outpatient (REF) | payer OTHER ==
[~2021-05-10] MED LIST changes: -NS 1,000 ML IV ONE
== END ==
LOC: M SFHCLERA 20:11
PROVIDERS: ATTEND Student in an Organized Health Care Education/Training Program
DX: Z12.4 Encounter for screening for malignant neoplasm of cervix (principal); R87.810 Cervical high risk human papillomavirus (HPV) DNA test positive
CPT/HCPCS: 87624; G0123

== ENCOUNTER → 2022-05-11 | Outpatient (CLI) | payer OTHER ==
[~2022-05-11] MED LIST changes: +LEVO1TAB40 PO; -LEVO750T13 PO
[2022-05-11 17:32] LABS: BASO % 0.6 % (0.0-1.0); EOS # 0.1 10^3/uL (0.0-0.5); EOS % 1.6 % (0.0-3.0); HEMATOCRIT 38.7 % (36.0-47.0); HEMOGLOBIN 12.2 g/dl (12.0-15.5); LYMPH # 2.3 10^3/uL (1.5-5.0); LYMPH % 36.1 % (24.0-44.0); MEAN CORPUSCULAR HEMOGLOBIN 28.1 pg (27.0-33.0); MEAN CORPUSCULAR HGB CONC 31.5 g/dl (32.0-36.5); MEAN CORPUSCULAR VOLUME 89.2 fl (80.0-96.0); MONO # 0.7 10^3/uL (0.0-0.8); MONO % 10.6 % (2.0-8.0); NEUTROPHILS # 3.3 10^3/uL (1.5-8.5); NEUTROPHILS % 50.8 % (36.0-66.0); PLATELET COUNT, AUTOMATED 312 10^3/uL (150-450); RED BLOOD COUNT 4.34 10^6/uL (4.00-5.40); WHITE BLOOD COUNT 6.4 10^3/uL (4.0-10.0)
[2022-05-11 18:11] LABS: ALBUMIN 3.8 GM/DL (3.2-5.2); ALT/SGPT 31 U/L (12-78); BILIRUBIN,TOTAL 0.3 MG/DL (0.2-1.0); BLOOD UREA NITROGEN 12 MG/DL (7-18); CARBON DIOXIDE LEVEL 28 MEQ/L (21-32); CHLORIDE LEVEL 103 MEQ/L (98-107); CHOLESTEROL LEVEL 212 MG/DL (<200); GLOMERULAR FILTRATION RATE > 60.0 (>51); GLUCOSE, FASTING 65 MG/DL (70-100); HDL CHOLESTEROL 106 MG/DL (>40); IRON (FE) 45 UG/DL (50-170); LDL CHOLESTEROL 93 MG/DL (<100); NON-HDL-C 106 MG/DL; PERCENT SATURATION 9.5 % (13.2-45.0); POTASSIUM SERUM 3.8 MEQ/L (3.5-5.1); SODIUM LEVEL 139 MEQ/L (136-145); TOTAL IRON BINDING CAPACITY 475 UG/DL (250-450); TRIGLYCERIDES LEVEL 64 MG/DL (<150)
[2022-05-11 19:24] LABS: TOTAL 25(OH) VITAMIN D 22.3 NG/ML (30.0-100.0)
[2022-05-11 19:44] LABS: HEMOGLOBIN A1c 5.3 %
[2022-05-12 15:43] LABS: VITAMIN B12 LEVEL 256 PG/ML (247-911)
== END ==
LOC: M WUC 11:23
PROVIDERS: ATTEND Student in an Organized Health Care Education/Training Program
DX: Z98.84 Bariatric surgery status (principal)

== ENCOUNTER → 2022-05-17 | Outpatient (CLI) | payer OTHER | LOC: M WHC 08:38 | PROVIDERS: ATTEND Student in an Organized Health Care Education/Training Program | DX: F10.10 Alcohol abuse, uncomplicated (principal); Z90.49 Acquired absence of other specified parts of digestive tract ==

== ENCOUNTER → 2023-08-22 | Outpatient (REF) | payer OTHER | LOC: M SFHCWAGY 15:41 | PROVIDERS: ATTEND Nurse Practitioner Family | DX: Z12.4 Encounter for screening for malignant neoplasm of cervix (principal); N76.0 Acute vaginitis | CPT/HCPCS: 87624; G0123 ==

== ENCOUNTER → 2023-08-22 | Outpatient (CLI) | payer OTHER | LOC: M WHC 11:00 | PROVIDERS: ATTEND Nurse Practitioner Family | DX: Z12.31 Encounter for screening mammogram for malignant neoplasm of breast (principal) ==

== ENCOUNTER 2024-10-14 07:22 | Day surgery (SDC) | payer OTHER ==
[~2024-10-14] VITALS: Ht 167.6 cm; Wt 67.6 kg
[~2024-10-14 07:22] MED LIST changes: +ASPI81TA26 PO; -GOOD200C PO; +IBUP200C35 PO; +MELO15TA28 PO; +ONDA-282 PO; -ONDA4TAB6 PO; +SPIR50TA4 PO
[2024-10-14] MEDS ORDERED: NS 250 ML IV ONE (09:00)
[2024-10-14] MEDS ORDERED: propofoL 500 MG/50 ML VIAL As Ordered ONE (10:13)
[2024-10-14] MEDS ORDERED: LIDOCAINE 2% MDV 20ML VIAL As Ordered ONE (10:13)
[2024-10-14 11:07] VITALS: BP 117/67; TEMP 97.1; O2SAT 100
== END 2024-10-14 11:10 | disposition home or self-care (01) ==
LOC: M OPP 07:22
PROVIDERS: ATTEND Internal Medicine Gastroenterology
DX: Z12.11 Encounter for screening for malignant neoplasm of colon (principal); D12.0 Benign neoplasm of cecum; K64.8 Other hemorrhoids; Z79.82 Long term (current) use of aspirin; Z79.899 Other long term (current) drug therapy; F17.290 Nicotine dependence, other tobacco product, uncomplicated

== ENCOUNTER → 2024-11-05 | Outpatient (REF) | payer OTHER ==
[2024-11-05 15:58] LABS: PHOSPHORUS LEVEL 4.6 MG/DL (2.5-4.9)
[2024-11-05 15:59] LABS: PERCENT SATURATION 18.2 % (13.2-45.0)
[2024-11-05 16:00] LABS: FOLATE 16.2 NG/ML (>5.4)
== END ==
LOC: M LAB REF 13:06
PROVIDERS: ATTEND Nurse Practitioner Family
DX: Z98.84 Bariatric surgery status (principal)